=== PATIENT | male | born 1940 | race Caucasian/White ===

== ENCOUNTER 2016-11-21 10:49 | Inpatient (IN) | payer OTHER ==
[~2016-11-21] VITALS: Ht 185.4 cm; Wt 115.2 kg
--- NOTE | ~2016-11-21 | HC ---
[facility] [place] [address] CONSULTATION Name: RC MCKOY Room #: 243-P [facility] IN M.R.#: [id number] Admission: 11/21/16 Attend Phys: Augusto Estrella MD Discharge: 11/27/16 Date of : 36 Report #: [id number] THIS REPORT FOR: //name// CC: SEAMUS Antonio MD Tim DATE OF SERVICE: 11/27/2016 HISTORY OF PRESENT ILLNESS: The patient is a 76-year-old male who was admitted on 11/21/2016, with left lower leg pain. Ultrasound with Dopplers was performed showing an extensive DVT. The patient has had a history of DVT as well as pulmonary embolus in the past. Dr. Dumont with Interventional Radiology was consulted. Because of his significant pain and early cyanosis, it was elected to proceed with a thrombectomy. He underwent this procedure on 11/23/2016. Findings showed a clot extending throughout the left leg, pelvis, and IVC. Clot was also extending to the IVC filter and above the filter approximately 4 cm infusion catheter was placed and the patient underwent thrombolytic therapy. Following the procedure, the patient was doing well and was transferred to the floor. He had an episode of hypertension today when he was working with physical therapy. He was given IV fluid bolus and stat labs were obtained and noted to have a drop in his hemoglobin to 6.2. The patient was transferred to the ICU and he began having hematemesis. The patient does have a history of excessive alcohol use in the past. No known previous history of GI bleed. He then underwent a CT scan of his chest, abdomen, and pelvis. This showed no evidence of cirrhosis of the liver or bile duct dilation. Colon had mild diverticulosis and air-fluid level within the nondistended transverse colon, cecum was moderately distended with an air-fluid level. The stomach was filled with fluid. Fluid was noted within the esophagus and mild mucosal wall thickening noted. Acute extravasation was noted in the distal esophagus, approximately 5 cm above the GE junction. No prominent vascularity ____ varices were noted, also moderate to large amount of free air was noted throughout the peritoneal cavity, minimal specks of gas were noted surrounding the stomach and giuliana hepatis region. No retroperitoneal hematoma or fluid collection was identified. I was consulted in addition to Dr. Antonio with general surgery. We discussed potentially proceeding with an upper endoscopy to see if the patient had active bleeding in the esophagus and then consider surgical options depending on those results. When I arrived, the patient remains hypertensive. He is in the ICU and he was just intubated. The plan at this time is now to transfer the patient to [facility] instead for further treatment. He is on a PPI drip. Packed cells have been ordered and they are pending at this time. The patient is sedated at this time. PAST MEDICAL HISTORY: DVT with previous history of PE, coronary artery disease, [address] [address] CONSULTATION Name: MACHOELIERC M Room #: 243-P [facility] IN M.R.#: [id number] Admission: 11/21/16 Attend Phys: Augusto Estrella MD Discharge: 11/27/16 Date of : 38 Report #: [id number] history of depression, history of dementia, history of alcohol dependence, congestive heart failure, chronic renal insufficiency, previous IVC filter placement in 2012. EXTRA MEDICATIONS: The patient is on propofol at this time. Protonix drip has been started, IV fluids, multivitamin, donepezil, folic acid, calcium carbonate, Zofran p.r.n., hydrocodone p.r.n., Tylenol p.r.n., alprazolam p.r.n. Etomidate has been held. Coumadin and Lovenox had been held as well. ALLERGIES: No known drug allergies. REVIEW OF SYSTEMS: Unobtainable as the patient is sedated and intubated at this time. SOCIAL HISTORY: Apparently a history of alcohol abuse. No known history of tobacco use. PHYSICAL EXAMINATION: VITAL SIGNS: Temperature is 97.5, blood pressure 78/56, pulse 105, respiratory rate 26. O2 sats are 100%. GENERAL: The patient is sedated, intubated at this time. HEENT: Sclerae nonicteric. Oropharynx shows some bright red blood. NECK: Supple. CARDIOVASCULAR: Regular rhythm, but tachycardic. CHEST: Clear to auscultation bilaterally. ABDOMEN: Distended, but not tense, soft. EXTREMITIES: No cyanosis, clubbing, or edema. LABORATORY DATA: Sodium 121, potassium 4.4, these are from 10:20 this morning, chloride 90, bicarbonate 23, BUN 27, creatinine 1.0. Glucose 172. Liver function tests from 11/21/2016, AST is 21, total bilirubin is 1.0, alkaline phosphatase 114, ALT is 24, albumin 3.6. His alcohol level on admission was less than 10. Iron 20, TIBC 232, percent sat 9. INR from today 1.2. Most recent CBC from 1455 today, WBC is 18.2, hemoglobin 6.4, MCV 98.2, platelet count is 326. C. diff was negative on 11/25/2016. ASSESSMENT AND PLAN: 1. Upper gastrointestinal bleed, unclear if the patient is having an esophageal bleed at this time as it did show extravasation near the GE junction on the CT. However, he has free air in the abdomen, need to consider the possibility of a perforated gastric or duodenal ulcer. The patient could be refluxing blood back into the esophagus. He does have a history of regular alcohol use, but no evidence of varices on CT or cirrhosis. Also of note, there was no mediastinal air. Again, I have discussed this case at length with Dr. nAtonio and Dr. Reza as well as hospitalist, Dr. Estrella. The plan at this point appears to be to transfer the patient to [facility] for further evaluation. This [facility] [address] [place] [address] CONSULTATION Name: RC MCKOY Room #: 243-P [facility] IN .R.#: [id number] Admission: 11/21/16 Attend Phys: Augusto Estrella MD Discharge: 11/27/16 Date of : 38 Report #: [id number] plan is still being discussed at this time. I agree with PPI therapy and obviously monitoring hemoglobin closely as well as blood transfusions. Thank you for allowing me to participate in his care. <ELECTRONICALLY SIGNED> By: Sergey Miramontes MD 11/28/16 1056 1813 0204 Sergey Miramontes MD /nt
--- NOTE | ~2016-11-21 | HC ---
[facility] [place] [address] CONSULTATION Name: RC MCKOY Room #: 243-P [facility] IN M.R.#: [id number] Admission: 11/21/16 Attend Phys: Augusto Estrella MD Discharge: 11/27/16 Date of : 38 Report #: [id number] THIS REPORT FOR: //name// CC: SEAMUS Estrella DATE OF SERVICE: 11/27/2016 PULMONARY AND CRITICAL CARE CONSULTATION REPORT DATE OF CONSULTATION: 11/27/2016. REASON FOR CONSULTATION: Hypotension significant anemia with blood loss. HISTORY OF PRESENT ILLNESS: Our group was asked to evaluate the patient while in the ICU. I got a stat consultation call to come and evaluate him urgently. He was transferred down from the inpatient floor due to hypotension noted when he became dizzy while working with physical therapy. The patient was noted to be significantly anemic, stated he had been having some hematemesis this afternoon as well. No episode in the last 2 hours by his report, initially presented with some complaints of weakness and lower extremity pain and edema. Has a known history of prior DVT, PE and inferior vena cava filter placement at that time. HOSPITAL COURSE: Included treatment with direct lytic therapy and suprarenal IVC filter, and he has been anticoagulated since that time prior to this episode. The patient notes no other abdominal history. Denies any abdominal surgeries. He has a history of significant alcohol use, but no known prior GI problems that he is aware of. Currently, he is awaiting blood transfusions, placed on Protonix drip. General surgery and gastroenterology consultations pending. His workup has also included CT chest, abdomen and pelvis which revealed small pulmonary emboli, some small pleural effusions and associated atelectasis. Abdominal findings showed mid distal esophageal possible extravasation as well as large amount of free air in the abdomen. No other specific findings appreciated. ALLERGIES: No known drug allergies. PAST MEDICAL HISTORY: Much has been taken from the records. The patient is a difficult historian. 1. He has a history of underlying tobacco use, COPD, severity not quantified in the records available. 2. History of prior DVT with pulmonary embolism with IVC filter in 2012 and recent lytic therapy and IVC filter this admission. [facility] [address] [place] [address] CONSULTATION Name: RC MCKOY Room #: 243-P [facility] IN [facility].#: [id number] Admission: 11/21/16 Attend Phys: Augusto Estrella MD Discharge: 11/27/16 Date of : 38 Report #: [id number] 3. Chronic renal insufficiency. 4. Anxiety. 5. Depression. 6. Alcohol abuse. 7. Hyperlipidemia. CURRENT HOME MEDICATIONS: The patient is unable to tell me. CURRENT INPATIENT MEDICATIONS: Include Protonix drip, Zosyn, both medications started this afternoon; multivitamin; donepezil, calcium carbonate, hydrocodone p.r.n., alprazolam p.r.n. and warfarin. SOCIAL HISTORY: The patient lives with his . No longer a tobacco user. He has significant alcohol consumption. REVIEW OF SYSTEMS: CONSTITUTIONAL: Some general malaise. ENT: No upper respiratory congestion, rhinorrhea or dysphagia. CARDIOVASCULAR: No chest pains or palpitations or known cardiac disease. GASTROINTESTINAL: Hematemesis as described. Denies any abdominal pain. GENITOURINARY: No dysuria, no frequency. INTEGUMENT: Denies any rash. MUSCULOSKELETAL: Extensive bilateral lower extremity edema. PHYSICAL EXAMINATION: VITAL SIGNS: Afebrile, pulse 100, respiratory rate 20, blood pressure 99/59, and oxygen saturation 96% on 2 liters. GENERAL: This is an elderly male in bed, no significant distress, somewhat anxious, pallid complexion. HEENT: Clear oropharynx. NECK: Supple, no lymphadenopathy. LUNGS: Clear. No wheezes or crackles. HEART: Regular but tachycardic. No murmurs. ABDOMEN: Soft, nontender, does not appear distended. EXTREMITIES: 3+ pitting edema bilaterally. LABORATORY DATA: White blood cell count 18,000; hemoglobin 6; hematocrit 19; platelet count 326. Sodium 121, potassium 4.4, chloride 90, bicarbonate 23, BUN 27, creatinine 1.0, glucose 172. INR is 1.2. IMPRESSION: 1. Gastrointestinal bleeding, likely upper gastrointestinal given hematemesis. 2. Free intraperitoneal air worrisome for significant abdominal perforation. General surgical consultation requested. 3. Underlying chronic obstructive pulmonary disease, does not appear to be significantly oxygen requiring at this time. [address] [address] CONSULTATION Name: LEELEERC Maira Room #: 243-P [facility] IN M.R.#: [id number] Admission: 11/21/16 Attend Phys: Augusto Estrella MD Discharge: 11/27/16 Date of : 38 Report #: [id number] 4. History of deep venous thrombosis, pulmonary embolism. Anticoagulation on hold. INR is 1.2. He has IVC filters in place. 5. Lower extremity venous thrombosis with significant edema. 6. History of alcohol abuse. Apparently, no evidence of withdrawal this admission. 7. Hypotension secondary to blood loss. 8. Blood loss anemia. SUGGESTIONS: 1. Agree with surgical and gastroenterology consultations. 2. Continue to transfuse. 3. We will request infectious disease consultation. Likely, the patient has peritonitis given free air in the abdomen. Agree with Wilbertn for now, but also would be concerned of an upper GI perforation, would also consider the possibility of yeast in the peritoneal cavity, may need coverage. 4. Significant IV fluid administration. 5. Central venous catheter to assist with management and multiple fluid infusions. 6. We will continue to follow. Thank you for requesting our suggestions. Total critical care time, not including procedures including 45 minutes to this point, discussing case with healthcare providers, the patient and review of records. <ELECTRONICALLY SIGNED> By: Elijah Reza MD 12/01/16 1508 1723 0408 Elijah Reza MD /nt
--- NOTE | ~2016-11-21 | EKG ---
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: MONSE : 1940 Requested By: Augusto Estrella Order Number: [id number] MD: Alek Sanford Measurements Intervals Shattuck Rate: 105 P: 37 OR: 171 QRS: 22 QRSD: 83 T: 31 QT: 327 QTc: 433 Interpretive Statements Sinus tachycardia Multiple premature complexes, vent & supraven Borderline low voltage, extremity leads Borderline ST depression, anterolateral leads Electronically Signed On 11-28-2016 8:03:31 ELECTRIC SIGN ASSEMBLER by Alek Sanford [email or web address] <ELECTRONICALLY SIGNED> By: Alek Sanford MD 11/28/16802 155 50 Alek Sanford MD /MICHELLE
--- NOTE | ~2016-11-21 | HC ---
[facility] [place] [address] CONSULTATION Name: RC MCKOY Room #: 243-P [facility] IN M.R.#: [id number] Admission: 11/21/16 Attend Phys: Augusto Estrella MD Discharge: 11/27/16 Date of : 38 Report #: [id number] THIS REPORT FOR: //name// CC: Bonifacio Estrella MD DATE OF SERVICE: 11/27/2016 TYPE OF REPORT: General surgery consultation. ATTENDING PHYSICIAN: Augusto Estrella M.D. REASON FOR CONSULTATION: Upper GI bleed and perforated viscus. HISTORY OF PRESENT ILLNESS: This is a 76-year-old male patient who I was called to see urgently for hematemesis and free intraperitoneal air. The patient had been admitted to [facility] on 11/21/2016 with complaints of left knee pain and swelling extending up to his hip. He had fallen the day prior and was able by ambulance but not without difficulty. He has a history of a prior pulmonary embolism for which he has an IVC filter in place. The patient underwent a right knee x-ray, which showed no acute osseous abnormality. This was followed by an ultrasound, which showed extensive left lower extremity deep venous thrombosis. His chest x-ray was normal. The patient was admitted and placed on anticoagulation. The patient underwent placement of IVC filter on 11/23/2016. He was found to have clot extending to the filter and above the filter approximately 4 cm. He was being followed on the floor but developed hypotension with physical therapy. Rapid response was called. He was tachycardic and was then transferred to the intensive care unit. A stat CBC showed anemia with a hemoglobin of 6.4. A stat CT scan showed acute hemorrhagic extravasation within the mid/distal esophagus without evidence for varicosities or cirrhosis. In addition to this, a [id number]-vg-[id number] amount of free air was seen within the abdominal cavity. It was also felt possible that the patient has a small-bowel obstruction with a perforation and decompression. Small bilateral pulmonary emboli were seen. I have been asked to see the patient urgently for further evaluation and potential treatment. The patient was just recently intubated and is sedated in the intensive care unit. The subjective portion of this report is taken from the electronic medical record. PAST MEDICAL HISTORY: Significant for previous deep venous thrombosis and pulmonary embolism in 2012. He also has a history of COPD, chronic kidney disease, anxiety, depression, hyperlipidemia and alcohol abuse. PAST SURGICAL HISTORY: Unknown; no abdominal scars appreciated. MEDICATIONS: Home meds unknown. [place] [address] CONSULTATION Name: RC MCKOY Room #: 243-P [facility] IN ..#: [id number] Admission: 11/21/16 Attend Phys: Augusto Estrella MD Discharge: 11/27/16 Date of : 38 Report #: [id number] pantoprazole, Zosyn, IV fluids, folic acid, donepezil, polyethylene glycol, hydrocodone, Alprazolam and p.r.n. medications. ALLERGIES: No known drug allergies. FAMILY HISTORY: Reviewed and noncontributory to this hospitalization. SOCIAL HISTORY: The patient is and lives with his . He denies use of tobacco or illicit drugs. He admits to drinking a large glass of gin daily. REVIEW OF SYSTEMS: As per history of present illness. Other review of systems is essentially unobtainable as the patient is intubated and sedated. PHYSICAL EXAMINATION: VITAL SIGNS: Pulse 100 and blood pressure 96/61. GENERAL: This is intubated and sedated 76-year-old male patient. HEENT: Atraumatic and normocephalic. NECK: Trachea midline. No appreciable lymphadenopathy. CHEST: Clear bilaterally. CARDIOVASCULAR: Regular rate and rhythm. S1 and S2. ABDOMEN: Soft, but distended and tympanitic. He has no peritonitis. No rebound. No guarding. No palpable masses. No appreciable hernias. No surgical scars. GENITOURINARY: Normal external male genitalia with the Soto catheter in place. EXTREMITIES: No clubbing or cyanosis. NEUROLOGICAL: Unable to assess. PSYCHIATRIC: Unable to assess. SKIN AND INTEGUMENTARY: No acute inflammatory changes, rashes or lesions are present. LABORATORY DATA: Most recent CBC shows a white blood cell count 18.2, hemoglobin 6.4, hematocrit 18.6 and platelets 326. Electrolytes show sodium of 121, potassium 4.4, chloride 90, CO2 of 23, BUN 27, creatinine 1.0 and glucose 172. ABG is pending. INR was 1.2. Urinalysis was negative. C. diff toxin assay from 11/25/2016 was negative. RADIOLOGIC STUDIES: CT findings are as noted above. IMPRESSION AND PLAN: This is a 76-year-old male patient with the above listed comorbidities, who is currently intubated and sedated. He appears to have possibly 2 issues in play. The more pressing issue is that of probable esophageal bleeding, which will be secondary to a Talia-Torrez tear or possibly esophagitis varices. The patient does have a significant drinking history; however, his reported LFTs are normal. His CT scan shows no nodularity of the liver. If this is located in the mid to distal esophagus and bleeding is unable to be controlled, the patient would need interventional [address] [place] [address] CONSULTATION Name: RC MCKOY Room #: 243-P [facility] IN M.R.#: [id number] Admission: 11/21/16 Attend Phys: Augusto Estrella MD Discharge: 11/27/16 Date of : 38 Report #: [id number] radiology for potential embolization. If the bleeding cannot be controlled in this manner, the patient would likely need to be transferred as I have discussed this with the cardiothoracic surgeons available at this facility, who do not operate on esophageal hemorrhage. If the bleeding is felt to be occurring from within the stomach or duodenum, this could potentially be controlled surgically. The other issue is that of the perforated viscus, which may be arising from a perforated gastric or duodenal ulcer, more likely, than from the colon or perforated small bowel based on my review of the CT scan with the radiologist. If the bleeding seems to be coming from the stomach or duodenum, this could be surgically treated (oversewn, etc.) with concomitant repair of ulcer, if present. Certainly if the perforated viscus is occurring elsewhere, treatment would be aimed at repairing the perforation in that location. The other alternative is to transfer the patient to a tertiary medical center, such as [facility]. The patient is currently stable. He is receiving packed red blood cells, and hemodynamically, he is holding his blood pressure and pulse. I am available if necessary. I will follow along closely with you. I sincerely appreciate the opportunity to participate in the care of this patient and we will leave further recommendations and orders in the electronic medical record as appropriate. <ELECTRONICALLY SIGNED> By: Josh Antonio MD, FACS 11/28/16 0739 1841 0039 Josh Antonio MD, FACS /nt
--- NOTE | ~2016-11-21 | H ---
[facility] [place] [address] HISTORY AND PHYSICAL Name: RC MCKOY Room #: 240-P ADM IN M.R.#: [id number] Admission: 11/21/16 Attend Phys: Augusto Estrella MD Discharge: Date of : 38 Report #: [id number] THIS REPORT FOR: //name// CC: Mikayla CARR DATE OF SERVICE: 11/21/2016 CHIEF COMPLAINT: Right lower extremity pain and swelling. HISTORY OF PRESENT ILLNESS: The patient is a 76-year-old man who lives with his . Couple of days ago, the patient sustained fall, and he hit his left knee. His left leg became severely swollen, so he presented to the Emergency Room. Based on his history of DVT, ultrasound was obtained, that showed extensive DVT. The patient had DVT in 2012. He is a poor historian, and he does not know much about his medical history. He cannot remember if he is on anticoagulation, or how long he was taking anticoagulation at that time. He also had pulmonary embolism. Because the patient became short of breath, he also had a V/Q scan. It is high probability for pulmonary embolus, which is similar to the finding in 2013. CT angiography could be performed because the patient is in renal failure. The patient currently feels comfortable, except has mild shortness of breath and left knee pain. Left knee is bruised. X-rays have been negative for fractures. PAST MEDICAL HISTORY: 1. COPD. 2. History of deep venous thrombosis and pulmonary embolism in 2013. 3. Chronic kidney disease. 4. Anxiety. 5. Depression. 6. Dyslipidemia. CURRENT MEDICATIONS: Unknown. The patient is unaware what he is taking, he does not have medication list with him. FAMILY HISTORY: The patient denies family history of clotting disorders. SOCIAL HISTORY: The patient lives with his . He does not smoke cigarettes. He drinks large a glass of gin on a daily basis. REVIEW OF SYSTEMS: As above in HPI section, all other systems negative. PHYSICAL EXAMINATION: [facility] [address] [place] [address] HISTORY AND PHYSICAL Name: RC MCKOY Room #: 240-[facility] IN M.R.#: [id number] Admission: 11/21/16 Attend Phys: Augusto Estrella MD Discharge: Date of : 38 Report #: [id number] GENERAL: The patient is an elderly man who is in no apparent distress. He is alert and oriented x 2. VITAL SIGNS: Blood pressure is 156/79, heart rate is 103, respiration is between 18 and 24, temperature is 97.5. HEENT: Pupils are equal. Eye movements are normal. The patient has anicteric sclerae. NECK: Supple. The patient has no thyromegaly. RESPIRATORY: He has bilateral wheezes, that are mild. He has no crackles. CARDIOVASCULAR: The patient has mild tachycardia. He has no murmurs, gallops or rubs. GASTROINTESTINAL: Abdomen is soft, nondistended and nontender. Bowel sounds are present. Hepatomegaly or splenomegaly is not palpated. MUSCULOSKELETAL: The patient has significant bruise at the left knee, and reduced range of motion. Left leg is severely swollen, nonpitting edema. Right leg is not swollen. NEUROLOGIC: The patient is alert and oriented x 2. He has no motor or sensory deficits. SKIN: He has bruise at the left knee, as detailed above. LABORATORY DATA: Sodium is 128. Other electrolytes showed potassium of 5.1, chloride 93, bicarbonate of 18, anion gap 17, creatinine 2.7 from 1.7 several years ago. Liver function tests are normal. On coagulation profile, INR is 1. On CBC, white count is 17.6. Hemoglobin is 12.8, hematocrit is 38.3, MCV is 100.3, and platelets are normal at 244. ASSESSMENT AND PLAN: 1. Left lower extremity deep venous thrombosis, recurrent problem, and V/Q scan high probability of pulmonary embolism. As noted, the patient had same problem in 2012, however, he cannot give me details about for how long he was treated with anticoagulation. The patient already received Lovenox in the Emergency Room. I am planning to contact pharmacy regarding when the patient can be changed to heparin drip. As noted, the patient has [id number] renal failure, with current creatinine of 2.7. His GFR is 23. Given extensive nature of the left lower extremity clot, I will consult interventional radiologist for further evaluation and treatment. 2. Mild hyponatremia. This could be secondary to dehydration. The patient will be treated with gentle IV fluid hydration. We will obtain cardiac echo. 3. Excessive alcohol intake. As noted, the patient drinks a large glass of gin on daily basis. He denies history of alcohol withdrawal. We will use Ativan p.r.n, and monitor him closely for alcohol withdrawal symptoms. 4. Acute renal failure on chronic kidney disease stage III. The patient's creatinine is 2.7, from 1.7 few years ago. However, recent baseline creatinine [address] [place] [address] HISTORY AND PHYSICAL Name: RC MCKOY Room #: 240-P ADM IN M.R.#: [id number] Admission: 11/21/16 Attend Phys: Augusto Estrella MD Discharge: Date of : 38 Report #: [id number] is not known. We will use IV fluids, and reassess the patient. 5. History of anxiety and depression. Outpatient medications are being clarified. The patient's is planning to bring all her old medications tomorrow, and list will be updated. 6. Suspected dementia, elderly at risk. We will ask immigration case manager to evaluate the patient. 7. Chronic obstructive pulmonary disease, mild wheezing. The patient is mildly short of breath. This probably is due to pulmonary embolism. As noted, we will obtain cardiac echo. We will use nebulizers p.r.n. The patient will be monitored closely on CCU, his condition will be reassessed and treatment will change depending on his condition. <ELECTRONICALLY SIGNED> By: Mikayla Doe MD 11/25/16 2032 1750 1848 Mikayla Doe MD /nt
--- NOTE | ~2016-11-21 | D ---
[facility] [place] [address] DISCHARGE SUMMARY Name: RC MCKOY Room #: 243-P [facility] IN M.R.#: [id number] Admission: 11/21/16 Attend Phys: Augusto Estrella MD Discharge: 11/27/16 Date of : 38 Report #: [id number] THIS REPORT FOR: //name// CC: Amari Estrella DATE OF SERVICE: 11/28/2016 DISCHARGE DIAGNOSES: 1. Perforated abdominal viscus. 2. Esophageal bleed. 3. Severe hypotension. 4. Acute renal failure. 5. Chronic kidney disease. 6. Extensive lower extremity deep venous thrombosis and pulmonary embolism status post thrombectomy and IVC filter on 11/24/2016. 7. History of chronic obstructive pulmonary disease. 8. History of depression and anxiety. 9. History of alcohol abuse in the past. 10. Confusion and memory loss, possible dementia. 11. Status post fall with left knee bruise and contusion. 12. Anemia secondary to chronic disease. PROCEDURES: 1. CT of the abdomen and pelvis which showed moderate amount of free air in the abdomen and also showed evidence of esophageal bleeding and it also showed diverticulosis and presence of recurrent left lower extremity occlusive thrombus. 2. Thrombolysis on 11/24/2016 and 11/23/2016. IVC filter placement on 11/24/2016. 3. V/Q scan on 11/21/2016 showed high probability for PE. 4. CT of the brain on 11/21/2016 showed no acute intracranial abnormality. 5. Venous Doppler on 11/21/2016 showed bilateral extensive DVT. HOSPITAL COURSE: The patient is a 76-year-old man with history of COPD, history of DVT, chronic kidney disease presented to the Emergency Room secondary to right lower extremity pain and swelling. Please look at the history and physical examination dictated by Dr. Doe. The patient has history of DVT in the past. Workup showed extensive DVT in lower extremity. The patient was seen by interventional radiologist and underwent thrombectomy with TPA. The patient was monitored in the ICU. The patient was taken for repeat thrombectomy on 11/24/2016 and an IVC filter was placed over the previous filter. The patient was doing well and the patient was on Lovenox and trying to be transitioned to Coumadin. On 11/27/2016 afternoon, the patient became very hypertensive. He [address] [address] DISCHARGE SUMMARY Name: RC MCKOY Room #: 243-P [facility] IN [facility]#: [id number] Admission: 11/21/16 Attend Phys: Augusto Estrella MD Discharge: 11/27/16 Date of : 38 Report #: [id number] was found to be severely anemic. The patient was transfused packed RBC and was transferred to the ICU. He underwent a stat CT of the chest, abdomen and pelvis. CT chest showed bilateral PE. He also showed severe hemorrhage into his esophagus and a perforated viscus with moderate amount of fat in the abdomen. The patient was seen by manager wireless and Surgery. Surgery recommended the patient to be transferred to . I did talk to trauma surgeons and the patient was transferred to for further treatment. The patient was intubated to protect his airway prior to transfer. <ELECTRONICALLY SIGNED> By: Augusto Estrella MD 12/08/16 1432 1526 1704 Augusto Estrella MD /nt
--- NOTE | ~2016-11-21 | 2DMMODE ---
[facility] [place] [address] 2 D/M-MODE ECHOCARDIOGRAM Name: RC MCKOY Room #: 218-P [facility] IN .R.#: [id number] Admission: 11/21/16 Attend Phys: Mikayla Doe Discharge: Date of : 38 Date of Service: 11/23/16 0821 Report #: [id number] THIS REPORT FOR: //name// Transthoracic Echocardiography Ordering physician: Mikayla Doe Referring physician: Mikayla Doe Paul Manager Supply Chain Planning: Brea Barraza Indications/History: Pulmonary embolism. Hx: DVT, PE, COPD BP: 113 / HR: 83bpm Height: 73in Weight: 254.5lb 66 Study data: M-mode, complete 2D, complete spectral Doppler, and color Doppler. Location: Bedside. Routine. Image quality was fair. The study was technically difficult due to body habitus and lung artifact.The parasternal window was low, thus no M-mode measurements were recorded. 2D measurements Normal Normal LVID ED 50mm 36-57 IVS ED 9.9mm 6-11 LVID ES 33.7mm 23-40 LVPW ED 10mm 6-11 LA volume 28ml/m2 16-28 AoRoot diam 36.2mm 21-37 index ED LVOT diameter 20mm 18-23 Findings: Left ventricle: The cavity size was normal. Wall thickness was normal. Systolic function was normal. The estimated ejection fraction was in the range of 55% to 60%. Wall motion was normal. Right ventricle: The cavity size was normal. Systolic function was normal. Right atrium: The atrium was at the upper limits of normal in size. Left atrium: The atrium was mildly dilated. Volume index: 28ml/m2 (S). [address] [address] 2 D/M-MODE ECHOCARDIOGRAM Name: RC MCKOY Room #: 465-P [facility] IN M.R.#: [id number] Admission: 11/21/16 Attend Phys: Mikayla oDe Discharge: Date of : 38 Date of Service: 11/23/16 0821 Report #: [id number] Aortic valve: Poorly visualized. Mildly sclerotic leaflets. Doppler: There was no stenosis. Mild regurgitation. Peak velocity: 184.7cm/s (S). Peak gradient: 13.6mm Hg (S). Mitral valve: Structurally normal valve. Doppler: There was no evidence for stenosis. Mild regurgitation. Peak E-wave velocity: 54.6cm/s. Peak A-wave velocity: 62.5cm/s. Tricuspid valve: Structurally normal valve. Doppler: There was no evidence for stenosis. Mild regurgitation. Regurgitant peak velocity: 270cm/s. Peak RV-RA gradient: 29mm Hg (S). Pulmonic valve: Poorly visualized. Pericardium: There was no pericardial effusion. Aorta: Aortic root: The aortic root was normal in size. Pulmonary artery: Systolic pressure was estimated to be 35mm Hg. Diastolic function: Doppler parameters are consistent with abnormal left ventricular relaxation (grade 1 diastolic dysfunction). Systemic veins: Inferior vena cava: The vessel was normal in size; the respirophasic diameter changes were in the normal range (= 50%). Conclusions Technically difficult study. 1. Left ventricle: Systolic function was normal. The estimated ejection fraction was in the range of 55% to 60%. Wall motion was normal. 2. Aortic valve: Poorly visualized. Mildly sclerotic leaflets. There was no stenosis. Mild regurgitation. 3. Mitral valve: Structurally normal valve. Mild regurgitation. 4. Pericardium, extracardiac: There was no pericardial effusion. 5. Pulmonary arteries: Systolic pressure was estimated to be 35mm Hg. <ELECTRONICALLY SIGNED> By: Irvin Duran MD, [facility] 11/23/16906 6 Irvin Duran MD, [facility] /felipe
--- NOTE | ~2016-11-21 | HC ---
[facility] [place] [address] CONSULTATION Name: RC MCKOY Room #: 432-P ADM IN M.R.#: [id number] Admission: 11/21/16 Attend Phys: Augusto Estrella MD Discharge: Date of : 38 Report #: [id number] THIS REPORT FOR: //name// CC: SEAMUS LILLY Augusto Estrella DATE OF SERVICE: 11/26/2016 REASON FOR CONSULTATION: Left knee pain. REQUESTING PHYSICIAN: Augusto Estrella M.D. PAST MEDICAL HISTORY: Significant for previous DVT, COPD, chronic kidney disease, anxiety, depression and dyslipidemia. FAMILY HISTORY: The patient denies. SOCIAL HISTORY: The patient lives with his . Denies tobacco use. Review of the chart indicates he drinks alcohol daily. REVIEW OF SYSTEMS: Positive for shortness of breath, which has been treated for in the hospitalization. No significant acute worsening of musculoskeletal pain. No prodromal arthritic knee complaints. No fever, chills or malaise. ALLERGIES: No known drug allergies. CURRENT MEDICATIONS: Coumadin, Lovenox, Dilaudid p.r.n., multivitamin, folic acid, donepezil and hydrocodone p.r.n. HISTORY OF PRESENT ILLNESS: The patient is a 76-year-old gentleman who was admitted to the hospital on 11/21/2016 with DVT and pulmonary embolism. He has been in the ICU since that time. According to the patient, he was having significant pain in the left knee and then he fell. He was brought to the emergency room. At that time, x-rays were taken of the tibia and the knee, which were negative for fracture or evidence of chronic ongoing degenerative disease. He has since been diagnosed with the DVT and the pulmonary embolism and underwent a venous thrombolysis by interventional radiology during this hospitalization. Per report, this resulted in improvement in the clot by least 90% as well as reduction in the firmness of the soft tissues and severity of the swelling. The patient indicates that he has not been having any symptoms in the left knee prior to the recent episode of DVT and he states that he did not fall and injury his knee, but rather the leg was hurting and caused him to fall. PHYSICAL EXAMINATION: VITAL SIGNS: Temperature is 36.6, pulse 97, respirations 20, blood pressure has been 110s to 150s over 60s to 90s. Pulse ox 87%-99%. [address] [address] CONSULTATION Name: RC MCKOY Room #: 432-P [facility] IN [facility]#: [id number] Admission: 11/21/16 Attend Phys: Augusto Estrella MD Discharge: Date of : 38 Report #: [id number] GENERAL: The patient is alert and oriented, awake in the hospital bed in the intensive care unit. He answers questions appropriately. He is in no acute distress. EXTREMITIES: Examination of the left lower extremity reveals significant pitting edema 4+, with ecchymosis on the anterior aspect of the knee. He has a small dressing posteriorly from his percutaneous thrombolysis procedure. There is tenderness posteriorly as well as anteriorly in the soft tissues. He is able to actively lift the leg and extend and flex the knee. The knee is not irritable to range of motion due to the extent of this soft tissue edema. It is difficult to assess in detail, but he does not appear to have significant effusion on my assessment. He does have sensation intact distally with brisk capillary refill. Right lower extremity demonstrates some ecchymosis on the anterior aspect of the knee, without any significant tenderness present. The edema in general is less than the left side. Sensation is intact distally with brisk capillary refill. RADIOGRAPHS: Two views, AP and lateral, of the left knee and 2 views of the tibia were obtained on 11/21 as well as 2 views of the femur. All of these are negative for fracture or acute orthopedic process. In addition, there is no evidence of degenerative joint disease of the left knee. IMPRESSION: A 76-year-old male in the intensive care unit with pulmonary embolism and deep venous thrombosis, status post venous thrombolysis of the left lower extremity and apparently IVC with left leg and knee pain. PLAN: I recommended that he continue with the current treatment. There is no evidence of fracture on my assessment or acute orthopedic condition such as a septic joint. My recommendation would be weightbearing as tolerated and range of motion as tolerated with physical therapy and edema control. Should the patient continue to have significant symptoms in the knee prison, we can consider an MRI, likely on an outpatient basis when this does become more of a chronic issue. I explained the recommendations and imaging results with the patient and answered his questions. <ELECTRONICALLY SIGNED> By: Dany Shah MD 11/27/16 1112 1110 1351 Dany Shah MD /nt
--- NOTE | ~2016-11-21 | EKG ---
[address] [address] ELECTROCARDIOGRAM REPORT Name: RC MCKOY Room #: 218-P ADM IN M.R.#: [id number] Admission: 11/21/16 Attend Phys: Mikayla Doe MD Discharge: Date of : 38 Report #: [id number] THIS REPORT FOR: //name// [facility] ED Test Date: 2016-11-21 Test Time: 12:54:06 Pat Name: RC MCKOY Department: Room: 218 Gender: M Finisher Tailor Apprentice: Andree MAURO : 1940 Requested By: Jen Esteban Order Number: [id number] MD: Cesar Frausto Measurements Intervals [place] Rate: 97 P: 22 CO: 170 QRS: -1 QRSD: 89 T: 40 QT: 331 QTc: 421 Interpretive Statements Sinus tachycardia Atrial premature complexes Abnormal R-wave progression, early transition No previous ECG available for comparison Electronically Signed On 11-21-2016 16:44:28 [employer] by Cesar Frausto [email or web address] <ELECTRONICALLY SIGNED> By: Cesar Frausto MD 11/21/16 1644 1254 1254 MD NATO Hylton
[~2016-11-21 10:49] MED LIST: ABILIFY 2 MG2 M1 PO; ALPRAZOLAM 0.0.25 MG PO; BANOPHEN50 MG PO; BENICAR40 MG PO; CRESTOR10 MG PO; LASIX 20 MG TAB20 MG PO; LEXAPRO20 MG PO; NASONEX17 GM NASAL; WELLBUTRIN SR150 MG PO; WELLBUTRIN XL150 M1 PO; ZETIA10 MG PO; [UNRECOGNIZED DRUG - OTHER]
[2016-11-21 10:50] VITALS: BP 127/81
[2016-11-21 11:35] LABS: HEMATOCRIT 38.3 % (42.0-52.0); HEMOGLOBIN 12.8 gm/dL (14.0-18.0); MCH 33.8 pg (26.0-34.0); MCHC 33.6 % (28.0-37.0); MCV 100.7 fL (80.0-100.0); PLATELET COUNT 244 thou/uL (150-400); RDW 14.1 % (10.5-14.5); WBC 17.6 thou/uL (4.0-11.0)
[2016-11-21 11:40] LABS: MANUAL DIFF YES
[2016-11-21 11:47] LABS: CALCIUM 8.6 mg/dL (8.5-10.1); CREATININE 2.7 mg/dL (0.6-1.3); POTASSIUM 5.1 mmol/L (3.5-5.1)
[2016-11-21 11:53] LABS: ALBUMIN 3.6 g/dL (3.4-5.0); TOTAL PROTEIN 6.7 g/dL (6.4-8.2)
[2016-11-21 11:58] LABS: ABSOLUTE NEUTROPHILS 16.7 thou/uL (1.4-8.2); TOTAL CELL COUNT 100
[2016-11-21 11:59] LABS: ANISOCYTOSIS 2+; MACROCYTES 1+
[2016-11-21 14:04] LABS: TROPONIN-I < 0.04 ng/mL (<0.04-0.07)
[2016-11-21 14:05] LABS: APTT 28.8 Seconds (24.5-32.8); INR 1.1; PROTIME 11.8 Seconds (9.3-11.4)
[2016-11-21 14:47] LABS: URINE BLOOD NEGATIVE (Negative); URINE COLOR YELLOW; URINE GLUCOSE-RANDOM* NEGATIVE (Negative); URINE KETONES NEGATIVE (Negative); URINE LEUKOCYTES-REFLEX TRACE (Negative); URINE PROTEIN (DIPSTICK) TRACE (Negative); URINE SPECIFIC GRAVITY >= 1.030 (1.003-1.035); URINE UROBILINOGEN 0.2 E.U./dl (0.2-1.0)
[2016-11-21 14:51] LABS: ICTOTEST (BILI CONFIRMATORY) Negative (Negative); URINE BILIRUBIN NEGATIVE (Negative)
[2016-11-21 14:58] VITALS: BP 138/107
[2016-11-21 15:20] VITALS: BP 156/79
[2016-11-21 16:30] VITALS: BP 135/83
[2016-11-21 19:10] VITALS: BP 131/77
[2016-11-22 00:15] VITALS: BP 126/72
[2016-11-22 04:16] LABS: HEMATOCRIT 31.7 % (42.0-52.0); HEMOGLOBIN 10.9 gm/dL (14.0-18.0); MCH 34.5 pg (26.0-34.0); MCHC 34.5 % (28.0-37.0); PLATELET COUNT 207 thou/uL (150-400); RBC 3.17 mil/uL (4.50-6.00); RDW 13.9 % (10.5-14.5); WBC 13.1 thou/uL (4.0-11.0)
[2016-11-22 04:25] LABS: MANUAL DIFF YES
[2016-11-22 04:39] LABS: CALCIUM 8.4 mg/dL (8.5-10.1); POTASSIUM 4.9 mmol/L (3.5-5.1)
[2016-11-22 05:20] VITALS: BP 126/73
[2016-11-22 05:51] LABS: ABSOLUTE NEUTROPHILS 12.2 thou/uL (1.4-8.2); TOTAL CELL COUNT 100
[2016-11-22 07:30] VITALS: BP 119/66
[2016-11-22 11:15] VITALS: BP 110/73
[2016-11-22] MEDS ORDERED: FOLIC ACID1 MG PO (12:29)
[2016-11-22] MEDS ORDERED: XANAX 0.25 MG0.25 MG PO (12:29)
[2016-11-22] MEDS ORDERED: ARICEPT 5 MG TAB5 MG PO (12:30)
[2016-11-22] MEDS ORDERED: OMEPRAZOLE 20 M20 M1 PO (12:31)
[2016-11-22] MEDS ORDERED: FOLBIC RF TABL1 EACH PO (12:32)
[2016-11-22] MEDS ORDERED: UNICOMPLEX M TA1 TA1 PO (12:32)
[2016-11-22 16:15] VITALS: BP 101/68
[2016-11-22 19:17] VITALS: BP 117/70
[2016-11-23] VITALS (24 sets, daily range): BP systolic 91–157; BP diastolic 30–139
[2016-11-23 00:37] LABS: ABSOLUTE NEUTROPHILS 8.9 thou/uL (1.4-8.2); BASOPHILS 0.7 % (0.0-2.0); EOSINOPHILS 1.4 % (0.0-3.0); HEMATOCRIT 30.9 % (42.0-52.0); HEMOGLOBIN 10.3 gm/dL (14.0-18.0); LYMPHOCYTES 7.7 % (24.0-44.0); MCH 34.2 pg (26.0-34.0); MCHC 33.5 % (28.0-37.0); MCV 102.1 fL (80.0-100.0); MONOCYTES 10.4 % (1.0-8.0); PLATELET COUNT 208 thou/uL (150-400); POLYS 79.8 % (36.0-66.0); RBC 3.03 mil/uL (4.50-6.00); RDW 13.5 % (10.5-14.5); WBC 11.1 thou/uL (4.0-11.0)
[2016-11-23 00:46] LABS: CALCIUM 7.9 mg/dL (8.5-10.1); CREATININE 1.4 mg/dL (0.6-1.3); POTASSIUM 4.9 mmol/L (3.5-5.1)
[2016-11-23 00:57] LABS: PROTIME 10.8 Seconds (9.3-11.4)
[2016-11-23 01:06] LABS: MANUAL DIFF NO
[2016-11-23 16:29] LABS: HEMOGLOBIN 10.2 gm/dL (14.0-18.0); MCH 34.4 pg (26.0-34.0); MCHC 34.1 % (28.0-37.0); MCV 100.9 fL (80.0-100.0); RBC 2.97 mil/uL (4.50-6.00); RDW 14.4 % (10.5-14.5); WBC 13.8 thou/uL (4.0-11.0)
[2016-11-23 16:54] LABS: FIBRINOGEN 169.5 mg/dL (210-360)
[2016-11-23 20:53] LABS: HEMATOCRIT 27.6 % (42.0-52.0); HEMOGLOBIN 9.7 gm/dL (14.0-18.0)
[2016-11-23 22:19] LABS: HEMATOCRIT 27.5 % (42.0-52.0); HEMOGLOBIN 9.7 gm/dL (14.0-18.0); MCH 35.3 pg (26.0-34.0); MCHC 35.1 % (28.0-37.0); MCV 100.5 fL (80.0-100.0); RBC 2.74 mil/uL (4.50-6.00); RDW 13.9 % (10.5-14.5); WBC 10.7 thou/uL (4.0-11.0)
[2016-11-23 22:40] LABS: APTT 48.9 Seconds (24.5-32.8)
[2016-11-23 22:44] LABS: FIBRINOGEN 77.1 mg/dL (210-360)
[2016-11-24] VITALS (42 sets, daily range): BP systolic 81–137; BP diastolic 45–120
[2016-11-24 04:46] LABS: HEMATOCRIT 27.1 % (42.0-52.0); HEMOGLOBIN 9.3 gm/dL (14.0-18.0); MCH 35.2 pg (26.0-34.0); MCHC 34.4 % (28.0-37.0); MCV 102.1 fL (80.0-100.0); PLATELET COUNT 157 thou/uL (150-400); RBC 2.65 mil/uL (4.50-6.00); RDW 14.1 % (10.5-14.5); WBC 8.9 thou/uL (4.0-11.0)
[2016-11-24 04:58] LABS: CALCIUM 7.8 mg/dL (8.5-10.1); CREATININE 1.2 mg/dL (0.6-1.3); MANUAL DIFF YES; POTASSIUM 4.6 mmol/L (3.5-5.1)
[2016-11-24 05:40] LABS: APTT 33.4 Seconds (24.5-32.8)
[2016-11-24 09:04] LABS: ABSOLUTE NEUTROPHILS 6.9 thou/uL (1.4-8.2); PLATELET ESTIMATE NORMAL; TOTAL CELL COUNT 100
[2016-11-24 19:08] LABS: % SATURATION 9 % (15-55); IRON 20 ug/dL (38-169); TIBC 232 ug/dL (250-450); UIBC 212 ug/dL (111-343)
[2016-11-25] VITALS (47 sets, daily range): BP systolic 83–146; BP diastolic 38–96
[2016-11-25 04:21] LABS: HEMATOCRIT 25.1 % (42.0-52.0); HEMOGLOBIN 8.8 gm/dL (14.0-18.0); MCH 35.1 pg (26.0-34.0); MCV 100.1 fL (80.0-100.0); PLATELET COUNT 180 thou/uL (150-400); RDW 14.1 % (10.5-14.5); WBC 10.2 thou/uL (4.0-11.0)
[2016-11-25 04:25] LABS: MANUAL DIFF YES
[2016-11-25 04:39] LABS: CALCIUM 7.6 mg/dL (8.5-10.1); CREATININE 1.1 mg/dL (0.6-1.3); MAGNESIUM 1.8 mg/dL (1.8-2.4); POTASSIUM 4.3 mmol/L (3.5-5.1)
[2016-11-25 05:12] LABS: ABSOLUTE NEUTROPHILS 8.4 thou/uL (1.4-8.2); TOTAL CELL COUNT 100
[2016-11-26] VITALS (24 sets, daily range): BP systolic 112–173; BP diastolic 62–103
[2016-11-26 04:26] LABS: PROTIME 10.5 Seconds (9.3-11.4)
[2016-11-26 05:41] LABS: APTT 31.3 Seconds (24.5-32.8)
[2016-11-27] VITALS (36 sets, daily range): BP systolic 71–133; BP diastolic 44–96
[2016-11-27 07:41] LABS: HEMATOCRIT 23.9 % (42.0-52.0); HEMOGLOBIN 8.2 gm/dL (14.0-18.0); MCH 33.8 pg (26.0-34.0); MCHC 34.3 % (28.0-37.0); MCV 98.3 fL (80.0-100.0); RBC 2.43 mil/uL (4.50-6.00); RDW 14.1 % (10.5-14.5); WBC 17.4 thou/uL (4.0-11.0)
[2016-11-27 07:58] LABS: CALCIUM 7.8 mg/dL (8.5-10.1); POTASSIUM 4.2 mmol/L (3.5-5.1)
[2016-11-27 08:00] LABS: INR 1.2; PROTIME 12.5 Seconds (9.3-11.4)
[2016-11-27 10:42] LABS: CALCIUM 7.5 mg/dL (8.5-10.1); POTASSIUM 4.4 mmol/L (3.5-5.1)
[2016-11-27 14:26] LABS: URINE BILIRUBIN NEGATIVE (Negative); URINE BLOOD NEGATIVE (Negative); URINE COLOR YELLOW; URINE GLUCOSE-RANDOM* NEGATIVE (Negative); URINE KETONES NEGATIVE (Negative); URINE LEUKOCYTES-REFLEX NEGATIVE (Negative); URINE PROTEIN (DIPSTICK) NEGATIVE (Negative)
[2016-11-27 15:19] LABS: MCH 33.7 pg (26.0-34.0); MCHC 34.3 % (28.0-37.0); MCV 98.2 fL (80.0-100.0); RBC 1.9 mil/uL (4.50-6.00); WBC 18.2 thou/uL (4.0-11.0)
[2016-11-27 15:25] LABS: HEMATOCRIT 18.6 % (42.0-52.0); HEMOGLOBIN 6.4 gm/dL (14.0-18.0)
== END 2016-11-27 21:45 | disposition short-term general hospital (02) | DRG 270 ==
LOC: ER 10:49 → ICU 13:30 → 2N 13:30 → EROBS 13:30 → 2N 14:53 → TBA 11-23 13:11 → ICU 11-23 15:34 → 4E 11-26 18:31 → ICU 11-27 16:04
PROVIDERS: Family Medicine; Internal Medicine; Internal Medicine Endocrinology, Diabetes & Metabolism; Nurse Practitioner Family; Radiology Vascular & Interventional Radiology
PROC: 3E05317 Introduction of Other Thrombolytic into Peripheral Artery, Percutaneous Approach (ICD-10-PCS; principal; 2016-11-23)
PROC: B41GZZZ Fluoroscopy of Left Lower Extremity Arteries (ICD-10-PCS; 2016-11-24)
PROC: 06CN3ZZ Extirpation of Matter from Left Femoral Vein, Percutaneous Approach (ICD-10-PCS; 2016-11-24)
PROC: 06H03DZ Insertion of Intraluminal Device into Inferior Vena Cava, Percutaneous Approach (ICD-10-PCS; 2016-11-24)
PROC: B51CYZZ Fluoroscopy of Left Lower Extremity Veins using Other Contrast (ICD-10-PCS; 2016-11-24)
PROC: 30233N1 Transfusion of Nonautologous Red Blood Cells into Peripheral Vein, Percutaneous Approach (ICD-10-PCS; 2016-11-27)
PROC: 5A1935Z Respiratory Ventilation, Less than 24 Consecutive Hours (ICD-10-PCS; 2016-11-27)
PROC: 05HB33Z Insertion of Infusion Device into Right Basilic Vein, Percutaneous Approach (ICD-10-PCS; 2016-11-27)
PROC: B54MZZA Ultrasonography of Right Upper Extremity Veins, Guidance (ICD-10-PCS; 2016-11-27)
DX: I82.402 Acute embolism and thrombosis of unspecified deep veins of left lower extremity (principal); I26.99 Other pulmonary embolism without acute cor pulmonale; N17.9 Acute kidney failure, unspecified; E87.1 Hypo-osmolality and hyponatremia; E87.2 Acidosis; I13.0 Hypertensive heart and chronic kidney disease with heart failure and stage 1 through stage 4 chronic kidney disease, or unspecified chronic kidney disease; N18.3 Chronic kidney disease, stage 3 (moderate); J44.9 Chronic obstructive pulmonary disease, unspecified; F32.9 Major depressive disorder, single episode, unspecified; F41.9 Anxiety disorder, unspecified; D63.8 Anemia in other chronic diseases classified elsewhere; F03.90 Unspecified dementia, unspecified severity, without behavioral disturbance, psychotic disturbance, mood disturbance, and anxiety; E78.5 Hyperlipidemia, unspecified; I50.9 Heart failure, unspecified; I25.10 Atherosclerotic heart disease of native coronary artery without angina pectoris; Z79.899 Other long term (current) drug therapy; K22.8 Other specified diseases of esophagus
CPT/HCPCS: 10078; 10183; 10194; 27000; 85076

== ENCOUNTER 2020-01-09 16:53 | Inpatient (IN) | payer OTHER ==
[~2020-01-09] VITALS: Ht 188 cm; Wt 103.0 kg
[~2020-01-09 16:53] MED LIST changes: +ARICEPT 5 MG TAB5 MG PO; +FOLBIC RF TABL1 EACH PO; +FOLIC ACID1 MG PO; +OMEPRAZOLE 20 M20 M1 PO; +UNICOMPLEX M TA1 TA1 PO; +XANAX 0.25 MG0.25 MG PO
[2020-01-09 16:55] VITALS: BP 112/54
[2020-01-09 17:49] LABS: ABSOLUTE NEUTROPHILS 2.8 thou/uL (1.4-8.2); BASOPHILS 0.3 % (0.0-2.0); EOSINOPHILS 4.2 % (0.0-3.0); HEMATOCRIT 35.8 % (42.0-52.0); HEMOGLOBIN 11.9 gm/dL (14.0-18.0); LYMPHOCYTES 20.2 % (24.0-44.0); MCHC 33.2 g/dL (28.0-37.0); MCV 99.3 fL (80.0-100.0); PLATELET COUNT 158 thou/uL (150-400); POLYS 64.3 % (36.0-66.0); RBC 3.61 mil/uL (4.50-6.00); RDW 13.7 % (10.5-14.5); WBC 4.4 thou/uL (4.0-11.0)
[2020-01-09 17:59] LABS: URINE BILIRUBIN NEGATIVE (Negative); URINE BLOOD NEGATIVE (Negative); URINE CLARITY CLEAR; URINE COLOR YELLOW; URINE GLUCOSE-RANDOM* NEGATIVE (Negative); URINE KETONES NEGATIVE (Negative); URINE LEUKOCYTES-REFLEX NEGATIVE (Negative); URINE NITRITE-REFLEX NEGATIVE (Negative); URINE PROTEIN (DIPSTICK) NEGATIVE (Negative); URINE SPECIFIC GRAVITY 1.015 (1.005-1.035); URINE UROBILINOGEN 0.2 E.U./dl (0.2-1.0)
[2020-01-09] MEDS ORDERED: DEPAKOTE ER250 MG PO (19:34)
[2020-01-09] MEDS ORDERED: SERTRALINE HCL25 MG PO (19:35)
[2020-01-09] MEDS ORDERED: SEROQUEL XR50 MG PO (19:36)
[2020-01-09] MEDS ORDERED: IPRAT-ALBUT 0.5-3 ML INH (19:37)
[2020-01-09] MEDS ORDERED: CLONAZEPAM 0.50.5 M1 PO (19:38)
[2020-01-09] MEDS ORDERED: TAMSULOSIN HCL0.4 MG PO (19:39)
[2020-01-09] MEDS ORDERED: SPIRIVA18 MCG INH (19:39)
[2020-01-09] MEDS ORDERED: MEMANTINE HCL10 MG PO (19:40)
[2020-01-09] MEDS ORDERED: GABAPENTIN250 MG/5 M PO (19:41)
[2020-01-09] MEDS ORDERED: PACERONE 200 M200 M1 PO (19:43)
[2020-01-09] MEDS ORDERED: TYLENOL325 M1 PO (19:43)
[2020-01-09] MEDS ORDERED: OXYCODONE HCL5 MG PO (19:44)
[2020-01-09] MEDS ORDERED: PROBIOTIC1 EAC7 PO (20:32)
[2020-01-09] MEDS ORDERED: L CARNITINE PO (20:32)
[2020-01-09] MEDS ORDERED: NOVOLOG100 UNIT/1 SUBQ (20:35)
[2020-01-09 20:38] VITALS: BP 128/65
[2020-01-09 20:47] VITALS: BP 128/65
[2020-01-09 20:58] LABS: CALCIUM 9.3 mg/dL (8.5-10.1); CREATININE 1.2 mg/dL (0.7-1.3); POTASSIUM 4.4 mmol/L (3.5-5.1)
[2020-01-09 21:04] LABS: ALBUMIN 2.9 g/dL (3.4-5.0); TOTAL BILIRUBIN 0.4 mg/dL (<0.1-1.0)
[2020-01-09 21:09] VITALS: BP 135/63
--- NOTE | 2020-01-10 02:18 | NUR ---
PT ADMITTED TO THE FLOOR AT 2100 FROM THE ER WITH C/O OF AGITATION.PT [facility] AND STAFF FROM SNF REPORT PT THREATENING THE RESIDENTS AND STAFF AND POUR GILBERT ON THE ANOTHER RESIDENT.PT HAS A HX OF DEMENTIA.PT HAS NO IV ACCESS.ON ARRIVAL PT WANTED TO GO BACK THE SNF SAYING HE WAS FINE NA D DIDNT KNOW WHY HE WAS BROUGHT HERE.PT IS NONAMBULATORY AND USES WHEELCHAIR.PT CANT REMEMBER DATE OF LBM.PT HAS A ESOPHAGOSTOMY AND PEG TUBE.PT IS NPO.PT ASKED FOR SLEEPING MEDICATIONS.NIGHT MEDS CRUSHED AND MEDICAL ANTHROPOLOGY DIRECTOR PER PEG TUBE.PT IS TO HAVE PSYCHIATRY CONSULT.WILL CONTINUE TO MONITOR PER POC
[2020-01-10 05:23] LABS: HEMATOCRIT 31.6 % (42.0-52.0); HEMOGLOBIN 10.6 gm/dL (14.0-18.0); MCH 33.2 pg (26.0-34.0); MCHC 33.4 g/dL (28.0-37.0); MCV 99.3 fL (80.0-100.0); PLATELET COUNT 135 thou/uL (150-400); RBC 3.19 mil/uL (4.50-6.00); WBC 3.6 thou/uL (4.0-11.0)
[2020-01-10 05:35] LABS: CALCIUM 8.3 mg/dL (8.5-10.1); POTASSIUM 3.7 mmol/L (3.5-5.1)
[2020-01-10 07:14] VITALS: BP 124/59
--- NOTE | 2020-01-10 08:13 | EKG ---
[facility] [place] [address] [place] [address] ELECTROCARDIOGRAM REPORT Name: CR MCKOY Room #: 451-P ADM IN M.R.#: [id number] Admission: 01/09/20 Attend Phys: Tommy Massey MD Discharge: Date of : 38 Report #: [id number] THIS REPORT FOR: cc: Cheryl Salazar,Cheyrl Barajas,Irvin Delgadillo MD [facility] ~ THIS REPORT FOR: //name// [facility] ED Test Date: 2020-01-09 Test Time: 17:07:31 Pat Name: RC MCKOY Department: Room: [facility] Gender: M Electronic Security Specialist: VERÓNICA : 1940 Requested By: Alexia Betancourt Order Number: [id number] MD: Irvin Duran Measurements Intervals Rex Rate: 84 P: 28 MI: 59 QRS: -15 QRSD: 113 T: 22 QT: 402 QTc: 476 Interpretive Statements Sinus rhythm Abnormal R-wave progression, early transition Borderline prolonged QT interval Compared to ECG 11/27/2016 15:51:49 Atrial premature complexes are no longer present Electronically Signed On 01-10-2020 8:12:35 [employer] by Irvin Duran [email or web address] <ELECTRONICALLY SIGNED> By: Irvin Duran MD, FAC 01/10/20 0812 1707 1707 Irvin Duran MD, FAC /EPI
[2020-01-10 08:43] LABS: ABSOLUTE NEUTROPHILS 2.2 thou/uL (1.4-8.2); PLATELET ESTIMATE NORMAL
[2020-01-10] MEDS ORDERED: ELIQUIS5 MG PO (12:00)
--- NOTE | 2020-01-10 13:11 | NUR ---
Nutrition: Pt on chronic tube feeds. reports bolus + nocturnal regimen. Unable to locate specific regimen in chart, called facility-await return call. In the meantime, suggest Jevity 1.5 bolus 1 can TID plus run 1 liter jevity 1.5 overnight from 7p-7a. (~83 mL/hr). REC 200 mL H20 bolus q 4 hrs.
--- NOTE | 2020-01-10 15:13 | NUR ---
PT A&O TO SELF. PT REFUSING MEDICATION TODAY. PT STATES HE WANTS TO LEAVE HOSPITAL THROUGHOUT DAY. PT AT BEDSIDE AND THIS CALMS HIM. MECHANICAL DOOR REPAIRER IN TO SEE PATIENT AND START PEG TUBE FEEDINGS. PT HAS NO IV ACCESS AND DOCTOR AWARE. PT ESOPHAGOSTOMY DRESSING CHANGED. NO SIGNS OF DISTRESS. WILL CONTINUE TO MONITOR.
[2020-01-10 16:30] VITALS: BP 117/54
--- NOTE | 2020-01-10 16:44 | NUR ---
PT ADMITTED RELATED TO AGITATION. CM REVIEWED CHART AND SPOKE WITH CARE TEAM. CM CALLED PT'S AND LEFT VM REQUESTING CALL BACK RELATED PLOF AND TO DISCUSS DC PLANNING. CM REACHED OUT TO [facility] INDICATED THAT PT RESIDES THERE LTC CURRENTLY. CHART INIDCATED PT USED A WHEELCAHIR TO ASSIST WITH MOBILITY AND THAT PT HAS A PEG TUBE FOR ENERAL TUBE FEEDINGS. PSYCH TO SEE PT. CM TO FOLLOW INDICATED WITH DC PLANNING.
[2020-01-10 19:35] VITALS: BP 112/50
--- NOTE | 2020-01-11 03:54 | NUR ---
PROGRESS PT A/O TO SELF, CALM, PLEASANT, AND COOPERATIVE. INCONTINENT OF URINE. PERICARE PROVIDED, PT TURNED WHEN REQUESTED. TUBE FEEDING JEVITY 1.5 RUNNING AT 83CC/HR RESIDUAL CHECKED AT MIDNIGHT AND 25 CC'S NOTED. PT PASSING LARGE AMOUNT OF FLATUS AND INCONTINENT OF URINE. C/O RIGHT ANKLE PAIN ELEVATED ON PILLOW WITH GOOD PAIN RELIEF. 200 CC H2O FLUSHES Q4 ORDERED. LEFT ESOPHAGEAL DRAIN SITE COVERED WITH ABD REMAINS C/D/I. PT STATED HE HAD A BM 01/09/20. CONTINUE POC.
[2020-01-11 07:04] VITALS: BP 119/63
--- NOTE | 2020-01-11 13:17 | NUR ---
PT ALERT AND ORIENTED TO SELF. PT WANTS TO GET OUT OF BED AND INTO WHEELCHAIR, AWAITING PT TO EVALUATE PATIENT. PATIENT TOLERATING PEG TUBE BOLUS. PATIENT RECEIVED BED BATH TODAY BY AUTOMOBILE DESIGNER. PT GETS FRUSTRATED AND WANTS TO HIT, THROW AND YELL OUT. PATIENT CAN BE CALMED DOWN. NO IV ACCESS DO TO AMS, DOCTOR AWARE. NO SIGNS OF DISTRESS. WILL CONTINUE TO MONITOR.
[2020-01-11 15:35] VITALS: BP 96/48
--- NOTE | 2020-01-11 17:33 | NUR ---
Pt cleared by psych and the attending to return to [facility]. BOP agreeable and will work with family on alternative placement as needed. Dc summary and pysch notes faxed along with the h/p. BOP has arranged for 6pm transport via w/c van and spouse who is at bedside was notified by nursing. Nursing to call report. Chart copy is ready to be sent with the pt.
== END 2020-01-11 18:44 | DRG 884 ==
LOC: ER 16:53 → EROBS 20:21 → 4W 20:21
PROVIDERS: Nurse Practitioner; ADMIT Internal Medicine
DX: F03.91 Unspecified dementia, unspecified severity, with behavioral disturbance (principal); Z93.1 Gastrostomy status; E44.0 Moderate protein-calorie malnutrition; I13.0 Hypertensive heart and chronic kidney disease with heart failure and stage 1 through stage 4 chronic kidney disease, or unspecified chronic kidney disease; I25.10 Atherosclerotic heart disease of native coronary artery without angina pectoris; F41.9 Anxiety disorder, unspecified; F32.9 Major depressive disorder, single episode, unspecified; I50.9 Heart failure, unspecified; R45.1 Restlessness and agitation; J44.9 Chronic obstructive pulmonary disease, unspecified; Z87.891 Personal history of nicotine dependence; Z86.711 Personal history of pulmonary embolism; Z95.828 Presence of other vascular implants and grafts; Z68.29 Body mass index [BMI] 29.0-29.9, adult; Z86.718 Personal history of other venous thrombosis and embolism
CPT/HCPCS: 10040